=== PATIENT | female | born 1975 | race Caucasian/White ===

== ENCOUNTER 2019-08-28 14:21 | Observation (INO) ==
[2019-08-28] MEDS ORDERED: Gabapentin 300 MG CAPSULE PO STA (15:31)
[2019-08-28] MEDS ORDERED: Isovue-370 500 ML BOTTLE IVP ONE (15:31)
[2019-08-28] MEDS ORDERED: 0.9 % Sodium Chloride 1,000 ML IVC ONE (15:31)
[2019-08-28] MEDS ORDERED: Ondansetron 4 MG/2 ML VIAL IVP ONE ×2 (15:31→21:45)
[2019-08-28] MEDS ORDERED: *HR* FentaNYL (PF) 100 MCG/2 ML VIAL IVP ONE ×2 (15:32→19:05)
[2019-08-28 15:56] LABS: Bilirubin,Urine Negative (Negative); Blood,Urine Negative (Negative); Clarity,Urine Turbid (Clear); Color,Urine Yellow (Yellow); Glucose,Urine (UA) Normal (Normal); Ketones,Urine Negative (Negative); Leukocyte Esterase,Urine Negative (Negative); Nitrite,Urine Negative (Negative); Protein,Urine 30 mg/dL (Neg-Trace); Specific Gravity,Urine 1.014 (1.010-1.025); Urobilinogen,Urine Normal (Normal)
[2019-08-28 15:58] LABS: Bacteria,Urine None Seen per hpf (None-Few); Hyaline Casts,Urine None Seen per lpf (None-Few); Squamous Epithelial Cell,Urine Many per lpf (None-Few); WBC,Urine 0-3 per hpf (0-3)
[2019-08-28 16:13] LABS: Basophils % 0.5 %; Eosinophils % 0.3 %; Hematocrit 34.6 % (35.3-44.9); Hemoglobin 11.7 g/dL (11.5-15.4); Immature Granulocytes % 0.3 % (0-4); Lymphocytes # 1.8 K/mcL (0.6-4.6); Lymphocytes % 21.1 %; Mean Corpuscular HGB Conc 33.8 g/dL (31.6-35.5); Mean Corpuscular Hemoglobin 33.6 pg (28.0-33.3); Mean Corpuscular Volume 99.4 fL (83.0-100.0); Mean Platelet Volume 9.5 fL (9.4-12.4); Monocytes # 0.6 K/mcL (0.0-1.3); Monocytes % 7.3 %; Neutrophils # 6.1 K/mcL (1.6-8.9); Platelet Count 293 K/mcL (140-400); Red Blood Count 3.48 M/mcL (3.82-4.97); Red Cell Distribution Width 14.6 % (11.5-14.5); Segmented Neutrophils % 70.5 %; White Blood Count 8.7 K/mcL (4.3-11.1)
[2019-08-28 16:32] LABS: Alanine Aminotransferase 37 Units/L (7-52); Albumin 3.8 g/dL (3.5-5.7); Albumin/Globulin Ratio 1.6 (1.1-2.2); Alkaline Phosphatase 85 Units/L (34-104); Aspartate Amino Transferase 90 Units/L (13-39); BUN/Creatinine Ratio 20 (6-26); Bilirubin,Direct 0.2 mg/dL (0.0-0.2); Bilirubin,Indirect 0.3 mg/dL (0.0-1.0); Bilirubin,Total 0.5 mg/dL (0.3-1.0); Blood Urea Nitrogen 15 mg/dL (6-20); Calcium 8.6 mg/dL (8.6-10.3); Carbon Dioxide 20 mEq/L (23-29); Chloride 112 mEq/L (98-107); Globulin 2.4 g/dL (2.4-3.5); Glucose 98 mg/dL (70-105); Lipase 50 Units/L (11-82); Osmolality,Calculated 299 (280-300); Potassium 3.3 mEq/L (3.5-5.1); Sodium 144 mEq/L (136-145); Total Protein 6.2 g/dL (6.4-8.9); eGFR For African Americans > 60 (> 60); eGFR For Non-African Americans > 60 (> 60)
[2019-08-28] MEDS ORDERED: cefTRIAXone 1,000 MG in Water for inj. (sterile) 10 ML IVP ONE (17:56)
[2019-08-28 18:28] LABS: INR 1.1; Prothrombin Time 12.9 Seconds (9.4-12.1)
[2019-08-28] MEDS ORDERED: *HR* Rocuronium Bromide 50 MG/5 ML VIAL ONE (21:12)
[2019-08-28] MEDS ORDERED: Lidocaine -MPF 2% 2 ML VIAL ONE (21:12)
[2019-08-28] MEDS ORDERED: *HR* Succinylcholine 200 MG/10 ML VIAL IVP ONE (21:12)
[2019-08-28] MEDS ORDERED: Lidocaine -MPF 4% 5 ML AMPUL ONE (21:12)
[2019-08-28] MEDS ORDERED: *HR* Midazolam HCl 2 MG/2 ML VIAL ONE (21:12)
[2019-08-28] MEDS ORDERED: *HR* FentaNYL (PF) 100 MCG/2 ML VIAL ONE (21:12)
[2019-08-28] MEDS ORDERED: *HR* Propofol 200 MG/20 ML VIAL IVP ONE (21:13)
[2019-08-28] MEDS ORDERED: Lidocaine HCL 4 ML Topical Solution (Laryng-O-Jet Kit Sterile Pak) TP ONE (21:24)
[2019-08-28] MEDS ORDERED: Bupivacaine/EPI 1:200k 0.5%PF 10 ML VIAL ONE (21:27)
[2019-08-28] MEDS ORDERED: *HR* Meperidine 25 MG/ML SYRINGE IVP PRN (21:45)
[2019-08-28] MEDS ORDERED: *HR* Promethazine 25 MG/ML VIAL IVP PRN (21:45)
[2019-08-28] MEDS ORDERED: Acetaminophen IV 1,000 MG/100 ML INFUS..BTL ONE (21:50)
[2019-08-28] MEDS ORDERED: Isovue-300 50ML VIAL ONE (22:19)
[2019-08-28] MEDS ORDERED: Dexamethasone 4 MG/ML VIAL ONE (22:49)
[2019-08-28] MEDS ORDERED: Ondansetron 4 MG/2 ML VIAL ONE (22:49)
[2019-08-28] MEDS ORDERED: Neostigmine Methylsulfate 3 MG/3 ML SYRINGE ONE (23:02)
[2019-08-28] MEDS ORDERED: Ketorolac 30 MG/ML VIAL ONE (23:27)
[2019-08-29] MEDS: *HR* HYDROmorphone (PF) 1 MG/ML SYRINGE IVP PRN ×3 (00:06→00:29)
[2019-08-29] MEDS ORDERED: Ondansetron 4 MG/2 ML VIAL IVP PRN (00:56)
[2019-08-29] MEDS ORDERED: traZODone 50 MG TABLET PO PRN (00:56)
[2019-08-29] MEDS: *HR* OxyCODONE/APAP 5/325 TABLET PO PRN ×2 (01:37→10:02)
[2019-08-29] MEDS ORDERED: Ketorolac 15 MG/ML VIAL IVP SCH (06:00)
[2019-08-29] MEDS ORDERED: Pantoprazole 40 MG VIAL IVP SCH (06:00)
[2019-08-29 06:33] VITALS: BP 124/81
[2019-08-29] MEDS ORDERED: Piperacillin/Tazobactam 3.375 GM in 0.9 % Sodium Chloride Mini Bag 100 ML IVPB SCH (08:00)
[2019-08-29] MEDS ORDERED: Topiramate 25 MG TABLET PO SCH (09:00)
[2019-08-29] MEDS ORDERED: tiZANidine 4 MG TABLET PO SCH (09:00)
[2019-08-29] MEDS ORDERED: FLUoxetine 20 MG CAPSULE PO SCH (09:00)
[2019-08-29] MEDS ORDERED: Gabapentin 300 MG CAPSULE PO SCH (09:00)
[2019-08-29] MEDS ORDERED: rOPINIRole 1 MG TABLET PO SCH (21:00)
== END 2019-08-29 13:42 | disposition home or self-care (01) ==
LOC: EMEROOARM 14:21 → 3ANU 14:21
PROVIDERS: ADMIT Surgery; ATTEND Surgery